=== PATIENT | female | born 1985 ===

== ENCOUNTER 2021-05-29 16:31 | Emergency (ER) | payer OTHER ==
[2021-05-29] MEDS ORDERED: Diphtheria,Pertussis(Acell),Tetanus Vaccine 0.5 ML Syringe IM ONE (17:25)
== END 2021-05-29 17:49 | disposition home or self-care (01) ==
LOC: MW.ED 16:31
DX: S61.411A Laceration without foreign body of right hand, initial encounter (principal); Z23 Encounter for immunization; W25.XXXA Contact with sharp glass, initial encounter
CPT/HCPCS: 90471; 90715; 99282